=== PATIENT | male | born 1945 | race Caucasian/White ===

== ENCOUNTER 2017-01-09 09:23 | Inpatient (IN) | payer OTHER, MEDICARE ==
[2017-01-09] MEDS ORDERED: ASPIRIN 81 MG CHEW PO STA (09:41)
[2017-01-09 09:58] LABS: Basophils % (A) 1 %; CH 33.5; CHCM 36.5; Eosinophils # (A) 0.1 k/uL (0-0.7); Eosinophils % (A) 2 %; HCT 42.2 % (39.0-53.0); HDW 3.09; HGB 14.6 gm/dL (13.0-17.5); Luc # (Auto) 0.07; Luc % (Auto) 1; Lymphocytes # (A) 1.1 k/uL (1.0-4.8); Lymphocytes % (A) 20 %; MCH 31.9 pg (25.0-35.0); MCHC 34.6 g/dL (31.0-37.0); MCV 92.2 fL (80.0-100.0); Mean Platelet Volume 8.2; Monocytes # (A) 0.3 k/uL (0-1.0); Monocytes % (A) 6 %; Neutrophils # (A) 3.9 k/uL (1.3-7.7); Neutrophils % (A) 70 %; RBC 4.57 m/uL (4.30-5.90); RDW 15.5 % (11.5-15.5); WBC 5.5 k/uL (3.8-10.6); WBC (Perox) 5.26
--- NOTE | 2017-01-09 10:02 | ED ---
General Adult HPI - General Chief complaint: Chest Pain Stated complaint: chest pressure Time Seen by Provider: 01/09/17 09:28 Source: patient, family, RN notes reviewed Mode of arrival: wheelchair Limitations: no limitations - History of Present Illness Initial comments: 71-year-old male with history of hypertension, hypercholesterolemia and prostate cancer presenting with substernal chest pressure. Patient's pain was mild but felt needed evaluation. Patient developed these symptoms this morning. Symptoms were present at rest. There was some associated shortness of breath. Chest pressure was nonradiating. Not associated with nausea or vomiting. No diaphoresis. Patient's last stress test was over 30 years ago. He is very healthy and active 71-year-old. Patient denies chest pressure at this time. Denies abdominal pain. Denies nausea vomiting or diarrhea. Denies fever or chills. Denies cough. - Related Data Home Medications Medication Instructions Recorded Confirmed Aspirin EC [Ecotrin Low Dose] 81 mg PO DAILY 01/09/17 01/09/17 Cholecalciferol [Vitamin D3] 6,000 unit PO DAILY 01/09/17 01/09/17 Curcumin 2 cap PO DAILY 01/09/17 01/09/17 Fish Oil/Dha/Epa [Fish Oil 1,200 1 cap PO DAILY 01/09/17 01/09/17 mg Fish Oil] Garlic 1 tab PO DAILY 01/09/17 01/09/17 Levothyroxine Sodium [Synthroid] 50 mcg PO DAILY 01/09/17 01/09/17 Lisinopril 40 mg PO DAILY 01/09/17 01/09/17 Multivit-Min/FA/Lycopen/Lutein 1 tab PO DAILY 01/09/17 01/09/17 [Centrum Silver Men Tablet] Terazosin HCl 2 mg PO HS 01/09/17 01/09/17 amLODIPine [Norvasc] 10 mg PO DAILY 01/09/17 01/09/17 Allergies Allergy/AdvReac Type Severity Reaction Status Date / Time No Known Allergies Allergy Verified 01/09/17 10:22 Review of Systems ROS Statement: Those systems with pertinent positive or pertinent negative responses have been documented in the HPI. ROS Other: All systems not noted in ROS Statement are negative. Cardiovascular: Reports: chest pain. Denies: palpitations Gastrointestinal: Denies: abdominal pain, nausea, vomiting Past Medical History Past Medical History: Cancer, Hyperlipidemia, Hypertension, Prostate Disorder Additional Past Medical History / Comment(s): prostate cancer History of Any Multi-Drug Resistant Organisms: None Reported Past Surgical History: Appendectomy Past Psychological History: No Psychological Hx Reported Smoking Status: Former smoker Past Alcohol Use History: None Reported Past Drug Use History: None Reported General Exam Limitations: no limitations General appearance: alert, in no apparent distress Head exam: Present: atraumatic, normocephalic Eye exam: Present: normal appearance, PERRL, EOMI ENT exam: Present: normal exam, mucous membranes moist Neck exam: Present: normal inspection. Absent: tenderness, meningismus Respiratory exam: Present: normal lung sounds bilaterally. Absent: respiratory distress, wheezes, rales Cardiovascular Exam: Present: regular rate, normal rhythm, normal heart sounds GI/Abdominal exam: Present: soft. Absent: distended, tenderness, guarding Extremities exam: Present: normal inspection, normal capillary refill, other (2 + bilateral DP pulses). Absent: pedal edema Neurological exam: Present: alert, oriented X3, CN II-XII intact. Absent: motor sensory deficit Psychiatric exam: Present: normal affect, normal mood Skin exam: Present: warm, dry. Absent: cyanosis, diaphoretic Course Vital Signs 01/09/17 01/09/17 09:26 10:28 Temperature 98.6 F Pulse Rate 70 64 Respiratory 20 20 Rate Blood Pressure 152/82 143/73 O2 Sat by Pulse 98 95 Oximetry - Reevaluation(s) Reevaluation #1: 01/09/17 10:36 Reevaluation patient remains chest pain-free. EKG Findings - EKG Comments: EKG Findings:: No ST segment elevation or depression, there does appear to be an inverted T-wave in lead 3, no associated T-wave inversion in the other inferior leads, Q-wave present in lead 3. Normal sinus rhythm, ventricular is 68, LA interval 180, QRS duration 102, QTC 425. Medical Decision Making - Medical Decision Making 71-year-old male with history of hypercholesterolemia hypertension and positive family history of coronary artery disease presents with chest pressure. This was resolved prior to arrival. Chest x-ray shows no acute process. EKG is nonischemic. Laboratory studies including cardiac enzymes are unremarkable. Patient remains chest pain-free in the emergency prompt. He is given an aspirin. He will be placed in observation for cardiology evaluation, and serial cardiac enzymes. Diagnosis: Chest pain rule out ACS - Lab Data Result diagrams: 01/09/17 09:34 01/09/17 09:34 Lab Results 01/09/17 01/09/17 01/09/17 Range/Units 09:34 09:34 09:34 WBC 5.5 (3.8-10.6) k/uL RBC 4.57 (4.30-5.90) m/uL Hgb 14.6 (13.0-17.5) gm/dL Hct 42.2 (39.0-53.0) % MCV 92.2 (80.0-100.0) fL MCH 31.9 (25.0-35.0) pg MCHC 34.6 (31.0-37.0) g/dL RDW 15.5 (11.5-15.5) % Plt Count 165 (150-450) k/uL Neutrophils % 70 % Lymphocytes % 20 % Monocytes % 6 % Eosinophils % 2 % Basophils % 1 % Neutrophils # 3.9 (1.3-7.7) k/uL Lymphocytes # 1.1 (1.0-4.8) k/uL Monocytes # 0.3 (0-1.0) k/uL Eosinophils # 0.1 (0-0.7) k/uL Basophils # 0.0 (0-0.2) k/uL PT (9.0-12.0) sec INR (<1.2) APTT (22.0-30.0) sec D-Dimer (<0.60) mg/L FEU Sodium 140 (137-145) mmol/L Potassium 4.4 (3.5-5.1) mmol/L Chloride 106 (98-107) mmol/L Carbon Dioxide 23 (22-30) mmol/L Anion Gap 11 mmol/L BUN 17 (9-20) mg/dL Creatinine 0.88 (0.66-1.25) mg/dL Est GFR (MDRD) Af Amer >60 (>60 ml/min/1.73 sqM) Est GFR (MDRD) Non-Af >60 (>60 ml/min/1.73 sqM) Glucose 121 H (74-99) mg/dL Calcium 9.5 (8.4-10.2) mg/dL Magnesium 1.9 (1.6-2.3) mg/dL Total Bilirubin 0.6 (0.2-1.3) mg/dL AST 28 (17-59) U/L ALT 56 (21-72) U/L Alkaline Phosphatase 110 (38-126) U/L Total Creatine Kinase 150 (55-170) U/L CK-MB (CK-2) 3.5 H* (0.0-2.4) ng/mL CK-MB (CK-2) Rel Index 2.3 Troponin I <0.012 (0.000-0.034) ng/mL Total Protein 6.7 (6.3-8.2) g/dL Albumin 4.4 (3.5-5.0) g/dL 01/09/17 Range/Units 09:34 WBC (3.8-10.6) k/uL RBC (4.30-5.90) m/uL Hgb (13.0-17.5) gm/dL Hct (39.0-53.0) % MCV (80.0-100.0) fL MCH (25.0-35.0) pg MCHC (31.0-37.0) g/dL RDW (11.5-15.5) % Plt Count (150-450) k/uL Neutrophils % % Lymphocytes % % Monocytes % % Eosinophils % % Basophils % % Neutrophils # (1.3-7.7) k/uL Lymphocytes # (1.0-4.8) k/uL Monocytes # (0-1.0) k/uL Eosinophils # (0-0.7) k/uL Basophils # (0-0.2) k/uL PT 9.6 (9.0-12.0) sec INR 0.9 (<1.2) APTT 23.7 (22.0-30.0) sec D-Dimer 0.33 (<0.60) mg/L FEU Sodium (137-145) mmol/L Potassium (3.5-5.1) mmol/L Chloride (98-107) mmol/L Carbon Dioxide (22-30) mmol/L Anion Gap mmol/L BUN (9-20) mg/dL Creatinine (0.66-1.25) mg/dL Est GFR (MDRD) Af Amer (>60 ml/min/1.73 sqM) Est GFR (MDRD) Non-Af (>60 ml/min/1.73 sqM) Glucose (74-99) mg/dL Calcium (8.4-10.2) mg/dL Magnesium (1.6-2.3) mg/dL Total Bilirubin (0.2-1.3) mg/dL AST (17-59) U/L ALT (21-72) U/L Alkaline Phosphatase (38-126) U/L Total Creatine Kinase (55-170) U/L CK-MB (CK-2) (0.0-2.4) ng/mL CK-MB (CK-2) Rel Index Troponin I (0.000-0.034) ng/mL Total Protein (6.3-8.2) g/dL Albumin (3.5-5.0) g/dL Disposition Clinical Impression: Chest pain Disposition: ADMITTED IP TO THIS [facility] Condition: Stable Referrals: None,Stated [Primary Care Provider] - 1-2 days Decision to Admit Reason: Admit from EC Decision Date: 01/09/17 Decision Time: 10:38
[2017-01-09 10:06] LABS: ALT 56 U/L (21-72); AST 28 U/L (17-59); Alkaline Phosphatase 110 U/L (38-126); Anion Gap 11 mmol/L; Blood Urea Nitrogen 17 mg/dL (9-20); Calcium 9.5 mg/dL (8.4-10.2); Carbon Dioxide 23 mmol/L (22-30); Chloride 106 mmol/L (98-107); Glucose 121 mg/dL (74-99); Magnesium 1.9 mg/dL (1.6-2.3); Non-African American GFR(MDRD) >60 (>60 ml/min/1.73 sqM); Potassium 4.4 mmol/L (3.5-5.1); Sodium 140 mmol/L (137-145); Total Bilirubin 0.6 mg/dL (0.2-1.3); Total Protein 6.7 g/dL (6.3-8.2)
[2017-01-09 10:16] LABS: Creatine Kinase 150 U/L (55-170)
--- NOTE | 2017-01-09 10:16 | XR ---
EXAMINATION TYPE: XR chest 2V DATE OF EXAM: 01/09/2017 COMPARISON: None HISTORY: 71-year-old male with chest pain TECHNIQUE: Frontal and lateral views FINDINGS: The heart is normal size. Mild atherosclerotic arch calcification. Pulmonary vasculature within fadumo l limits. There is strandy atelectasis at the left base. No consolidation or effusion. IMPRESSION: No acute cardiopulmonary process.
[2017-01-09 10:21] LABS: INR 0.9 (<1.2); Partial Thromboplastin Time 23.7 sec (22.0-30.0); Prothrombin Time 9.6 sec (9.0-12.0)
[2017-01-09 10:28] LABS: Creatine Kinase MB 3.5 ng/mL (0.0-2.4); Troponin I <0.012 ng/mL (0.000-0.034)
[2017-01-09] MEDS ORDERED: ONDANSETRON 4 MG/2 ML VIAL IVP PRN (10:39)
[2017-01-09] MEDS ORDERED: NALOXONE 0.4 MG/ML 1 ML VIAL IV PRN (10:39)
[2017-01-09] MEDS ORDERED: MORPHINE SULFATE 4 MG/ML SYRINGE IV PRN (10:39)
[2017-01-09] MEDS: DEXTROSE 5%-0.45% NACL 1,000 ML IV SCH (11:51)
--- NOTE | 2017-01-09 13:00 | P.HPIM ---
History of Present Illness Patient is a very pleasant 71-year-old gentleman came in with complaints of chest pressure-like sensation was started when he woke up about 1 x 10 in severity nonradiating in the substernal area, associated with shortness of breath, questionable lightheadedness denied any diaphoresis, his chest pain is nonpleuritic in nature lasted for about 2 hours, not associated with food presently on and off. Patient's chest pain resolved before he came to ER. Patient does have history of hypertension and hyperlipidemia not a smoker. Considering his age patient is concerned and came to ER for probable probable cardiac causes of chest pain. Patient's chest pain is nonreproducible. Patient 's EKG showed sinus rhythm without any acute ST-T wave changes. Chest x-ray within normal limits patient denied any cough fever. First set of troponin is negative. Review of Systems REVIEW OF SYSTEMS: CONSTITUTIONAL: No fever, no malaise, no fatigue. HEENT: No recent visual problems or hearing problems. Denied any sore throat. CARDIOVASCULAR: no orthopnea, PND, no palpitations, no syncope. PULMONARY: , no cough, no hemoptysis. GASTROINTESTINAL: No diarrhea, no nausea, no vomiting, no abdominal pain. Normoactive bowel sounds. NEUROLOGICAL: No headaches, no weakness, no numbness. HEMATOLOGICAL: Denies any bleeding or petechiae. GENITOURINARY: Denies any burning micturition, frequency, or urgency. MUSCULOSKELETAL/RHEUMATOLOGICAL: Denies any joint pain, swelling, or any muscle pain. ENDOCRINE: Denies any polyuria or polydipsia. The rest of the 14-point review of systems is negative. Past Medical History Past Medical History: Cancer, Hyperlipidemia, Hypertension, Prostate Disorder, Thyroid Disorder Additional Past Medical History / Comment(s): PROSTATE CANCER TX WITH RADIATION AND HORMONE THERAPY, HYPOTHYROID. History of Any Multi-Drug Resistant Organisms: None Reported Past Surgical History: Appendectomy Additional Past Surgical History / Comment(s): COLONOSCOPIES, BILATERAL CATARACT REMOVAL WITH LENS IMPLANTS. Past Anesthesia/Blood Transfusion Reactions: No Reported Reaction Smoking Status: Former smoker - Past Family History Father Family Medical History: Myocardial Infarction ([place]) Additional Family Medical History / Comment(s): FATHER OF A LA AT THE AGE OF 82 YRS. Mother Additional Family Medical History / Comment(s): MOTHER AFTER A FALL WHICH CAUSED A BRAIN BLEED. Medications and Allergies Home Medications Medication Instructions Recorded Confirmed Type Aspirin EC [Ecotrin Low Dose] 81 mg PO DAILY 01/09/17 01/09/17 History Cholecalciferol [Vitamin D3] 6,000 unit PO DAILY 01/09/17 01/09/17 History Curcumin 2 cap PO DAILY 01/09/17 01/09/17 History Fish Oil/Dha/Epa [Fish Oil 1,200 1 cap PO DAILY 01/09/17 01/09/17 History mg Fish Oil] Garlic 1 tab PO DAILY 01/09/17 01/09/17 History Levothyroxine Sodium [Synthroid] 50 mcg PO DAILY 01/09/17 01/09/17 History Lisinopril 40 mg PO DAILY 01/09/17 01/09/17 History Multivit-Min/FA/Lycopen/Lutein 1 tab PO DAILY 01/09/17 01/09/17 History [Centrum Silver Men Tablet] Terazosin HCl 2 mg PO HS 01/09/17 01/09/17 History amLODIPine [Norvasc] 10 mg PO DAILY 01/09/17 01/09/17 History Allergies Allergy/AdvReac Type Severity Reaction Status Date / Time No Known Allergies Allergy Verified 01/09/17 10:22 Physical Exam Vitals: Vital Signs Temp Pulse Resp BP Pulse Ox 01/09/17 11:00 63 18 144/73 95 01/09/17 10:28 64 20 143/73 95 01/09/17 09:26 98.6 F 70 20 152/82 98 Intake and Output 01/08/17 01/09/17 01/09/17 22:59 06:59 14:59 Other: Weight 111.13 kg Patient Weight 01/10/17 06:59 Weight 111.13 kg PHYSICAL EXAMINATION: GENERAL: The patient is alert and oriented x3, not in any acute distress. Well developed, well nourished. HEENT: Pupils are round and equally reacting to light. EOMI. No scleral icterus. No conjunctival pallor. Normocephalic, atraumatic. No pharyngeal erythema. No thyromegaly. CARDIOVASCULAR: S1 and S2 present. No murmurs, rubs, or gallops. PULMONARY: Chest is clear to auscultation, no wheezing or crackles. ABDOMEN: Soft, nontender, distended and tympanic, normoactive bowel sounds. No palpable organomegaly. MUSCULOSKELETAL: No joint swelling or deformity. EXTREMITIES: No cyanosis, clubbing, or pedal edema. NEUROLOGICAL: Gross neurological examination did not reveal any focal deficits. SKIN: No rashes. Results CBC & Chem 7: 01/09/17 09:34 01/09/17 09:34 Labs: Abnormal Lab Results - Last 24 Hours (Table) 01/09/17 01/09/17 Range/Units 09:34 09:34 Glucose 121 H (74-99) mg/dL CK-MB (CK-2) 3.5 H* (0.0-2.4) ng/mL Thrombosis Risk Factor Assmnt - Choose All That Apply Any of the Below Risk Factors Present?: Yes Each Factor Represents 1 point: Obesity (BMI >25) Other Risk Factors: Yes Each Risk Factor Represents 2 Points: Age 61-74 years, Malignancy Other congenital or acquired thrombophilia - If yes, enter type in comment: No Thrombosis Risk Factor Assessment Total Risk Factor Score: 5 Thrombosis Risk Factor Assessment Level: High Risk Assessment and Plan Plan: #1 chest pain: Patient will be admitted to rule out acute coronary syndromes, patient will probably need a stress test. We'll rule out unstable angina. 2 more sets of troponin and EKG. Cardiology was consulted. #2 hypertension: Well-controlled blood pressures and continue with lisinopril and amlodipine. #3 hypothyroidism continue with levothyroxine #4 benign prostatic hypertrophy and prostate cancer in the past status post radiation therapy recently late last year #5 hyperlipidemia
[2017-01-09 15:41] LABS: Creatine Kinase 128 U/L (55-170)
[2017-01-09 15:53] LABS: Troponin I <0.012 ng/mL (0.000-0.034)
[2017-01-09] MEDS: TERAZOSIN 2 MG CAP PO SCH (20:10)
[2017-01-09 22:34] LABS: Creatine Kinase 121 U/L (55-170)
[2017-01-09 22:47] LABS: Troponin I <0.012 ng/mL (0.000-0.034)
[2017-01-09 22:59] LABS: Creatine Kinase MB 2.8 ng/mL (0.0-2.4)
[2017-01-10] MEDS: DEXTROSE 5%-0.45% NACL 1,000 ML IV SCH (00:25)
[2017-01-10] MEDS ORDERED: CALCIUM CARBONATE 500 MG CHEWABLE PO PRN (00:31)
[2017-01-10] MEDS: LEVOTHYROXINE 50 MCG TAB PO SCH (06:10)
--- NOTE | 2017-01-10 11:51 | NM ---
EXAMINATION TYPE: NM stress cardiolite complete DATE OF EXAM: 01/10/2017 COMPARISON: NONE HISTORY: Shortness of breath, pain TECHNIQUE: After the intravenous administration of 10.4 mCi Tc 99m Sestamibi - Rest images obtained 50 minutes post injection. The patient exercised using a STEPHY protocol and 1 minute prior to peak exercise was injected with 27.5 mCi Tc 99m Sestamibi - Stress images obtained 5 minutes post injectio n. FINDINGS: Targeted heart rate was achieved during performance of the study. Review of stress and rest SPECT varsha ges demonstrates some decreased radio pharmaceutical uptake along lateral wall on stress as compared to rest images. Gated analysis shows normal wall motion with an estimated left ventricular ejection fraction of 49 %. 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
--- NOTE | 2017-01-10 11:52 | EST ---
DATE OF SERVICE: 01/10/2017 TYPE OF REPORT: CARDIOLITE STRESS TEST INDICATION: Shortness of breath. BASELINE HEART RATE: 75 BASELINE BLOOD PRESSURE: 168/64 MAXIMUM HEART RATE: 129 MAXIMUM BLOOD PRESSURE: 211/82 85% MPHR: 124 100% MPHR: 147 METS: MAXIMUM STAGE REACHED: 2 TOTAL EXERCISE TIME: 6:00 Baseline EKG revealed a sinus mechanism with a minor nonspecific ST abnormality. Patient walked on standard [place] protocol for a total duration of 6 minutes, achieved a maximum heart rate of 129 beats per minute which is more than 85% of predicted maximum. He did not have any angina or any significant arrhythmia. Upsloping ST segment changes are noted which are considered inconclusive mainly because his resting EKG had some ST segment changes to begin with. These changes were not associated with any angina. ASSESSMENT: 1. By EKG criteria, this is an inconclusive stress test because of minor resting EKG changes with limited exercise capacity. 2. The nuclear scan results which are more pertinent will be reported by the radiologist. TOLU
[2017-01-10] MEDS ORDERED: HEPARIN SODIUM,PORCINE 5,000 UNIT/ML 1 ML VIAL IV PRN (13:07)
[2017-01-10] MEDS ORDERED: ASPIRIN 325 MG TAB PO STA (13:10)
[2017-01-10] MEDS ORDERED: NITROGLYCERIN SL TABS 0.4 MG TAB SUBLINGUAL PRN (13:10)
[2017-01-10] MEDS ORDERED: ALPRAZolam 0.25 MG TAB PO PRN (13:10)
[2017-01-10] MEDS ORDERED: ATORVASTATIN 80 MG TAB PO STA (13:10)
[2017-01-10] MEDS ORDERED: SODIUM CHLORIDE 0.9% 1,000 ML in EMPTY BAG 1 BAG IV ONE (13:10)
[2017-01-10] MEDS ORDERED: ALPRAZolam 0.5 MG TAB PO PRN (13:10)
[2017-01-10] MEDS ORDERED: HEPARIN SODIUM,PORCINE/D5W PMX 25,000 UNIT in DEXTROSE/WATER 1 500ML.BAG IV SCH (13:15)
--- NOTE | 2017-01-10 13:23 | P.CRDCN ---
History of Present Illness Consult date: 01/10/17 Consult reason: chest pain History of present illness: This is a 71-year-old male with a history of hyperlipidemia and hypertension. He presented to the emergency room with complaints of left-sided chest heaviness. He states he woke up yesterday morning feeling increasingly fatigued, weak and achy all over. He thought he was possibly coming down with some sort of a viral illness. He then began to have what he described as chest heaviness and palpitations. He denies dizziness, nausea, diaphoresis or radiation of the pain. He states he has never seen a portable machine sander for any reason. He has no history of coronary artery disease or NM. He is a former smoker. His last stress test was over 40 years ago. His EKG indicates a normal sinus mechanism. Chest x-ray is negative for any acute cardiopulmonary process. Troponins are negative 3. There are no old records available to review in the system. Patient states the pain and palpitations have subsided on their own. Cardiac tracings indicate multifocal PVC's with underlying NSR. Review of Systems REVIEW OF SYSTEMS: Patient denies any chest discomfort. No shortness of breath. No diaphoresis. He denies headache, dizziness, blurred vision, double vision. No dyspnea on exertion. Patient denies any stomach discomfort. No nausea, vomiting. No hematochezia. No hematemesis. Denies any black stools or blood in his stools. No syncope. No palpitations. No cough. No recent fever or chills. Denies dysuria or hematuria. No muscle weakness or numbness. Past Medical History Past Medical History: Cancer, Hyperlipidemia, Hypertension, Prostate Disorder, Thyroid Disorder Additional Past Medical History / Comment(s): PROSTATE CANCER TX WITH RADIATION AND HORMONE THERAPY, HYPOTHYROID. History of Any Multi-Drug Resistant Organisms: None Reported Past Surgical History: Appendectomy Additional Past Surgical History / Comment(s): COLONOSCOPIES, BILATERAL CATARACT REMOVAL WITH LENS IMPLANTS. Past Anesthesia/Blood Transfusion Reactions: No Reported Reaction Smoking Status: Former smoker - Past Family History Father Family Medical History: Myocardial Infarction ([place]) Additional Family Medical History / Comment(s): FATHER OF A [place] AT THE AGE OF 82 YRS. Mother Additional Family Medical History / Comment(s): MOTHER AFTER A FALL WHICH CAUSED A BRAIN BLEED. Medications and Allergies Home Medications Medication Instructions Recorded Confirmed Type Aspirin EC [Ecotrin Low Dose] 81 mg PO DAILY 01/09/17 01/09/17 History Cholecalciferol [Vitamin D3] 6,000 unit PO DAILY 01/09/17 01/09/17 History Curcumin 2 cap PO DAILY 01/09/17 01/09/17 History Fish Oil/Dha/Epa [Fish Oil 1,200 1 cap PO DAILY 01/09/17 01/09/17 History mg Fish Oil] Garlic 1 tab PO DAILY 01/09/17 01/09/17 History Levothyroxine Sodium [Synthroid] 50 mcg PO DAILY 01/09/17 01/09/17 History Lisinopril 40 mg PO DAILY 01/09/17 01/09/17 History Multivit-Min/FA/Lycopen/Lutein 1 tab PO DAILY 01/09/17 01/09/17 History [Centrum Silver Men Tablet] Terazosin HCl 2 mg PO HS 01/09/17 01/09/17 History amLODIPine [Norvasc] 10 mg PO DAILY 01/09/17 01/09/17 History Allergies Allergy/AdvReac Type Severity Reaction Status Date / Time No Known Allergies Allergy Verified 01/09/17 10:22 Physical Exam Vitals: Vital Signs Temp Pulse Pulse Resp BP BP Pulse Ox 01/10/17 04:00 98.2 F 62 18 140/72 93 L 01/09/17 23:38 72 18 130/71 98 01/09/17 19:45 18 01/09/17 19:40 98.2 F 75 18 137/77 98 01/09/17 16:03 98.0 F 71 16 148/78 94 L 01/09/17 15:59 97.8 F 72 18 134/63 96 01/09/17 11:00 63 18 144/73 95 01/09/17 10:28 64 20 143/73 95 01/09/17 09:26 98.6 F 70 20 152/82 98 Intake and Output 01/09/17 01/10/17 01/10/17 22:59 06:59 14:59 Intake Total 300 Balance 300 Intake: Intake, IV Titration 300 Amount Dextrose 5%-0.45% NaCl 1, 300 000 ml @ 75 mls/hr IV . [id number] [facility] Rx#:[id number] Other: Weight 116.9 kg GENERAL: This is a 71-year-old male in no apparent distress at the time of my examination. HEENT: Head is atraumatic, normocephalic. Pupils are equal, round. Sclerae anicteric. Conjunctivae are clear. Mucous membranes of the mouth are moist. Neck is supple. There is no jugular venous distention. No carotid bruit is heard. LUNGS: Clear to auscultation and precussion. No chest wall tenderness is noted on palpation or with deep breathing. HEART: Regular rate and rhythm short systolic murmur, no rubs or gallops. S1 and S2 heard. ABDOMEN: Soft, nontender. Bowel sounds are heard. No organomegaly noted. EXTREMITIES: 2+ peripheral pulses with no evidence of peripheral edema and no calf tenderness noted. NEUROLOGIC: Patient is awake, alert and oriented x3. Results 01/11/17 07:07 01/09/17 09:34 Cardiac Enzymes 01/09/17 01/09/17 01/09/17 Range/Units 09:34 09:34 15:01 AST 28 (17-59) U/L CK-MB (CK-2) 3.5 H* 3.0 H* (0.0-2.4) ng/mL Troponin I <0.012 <0.012 (0.000-0.034) ng/mL 01/09/17 Range/Units 21:42 AST (17-59) U/L CK-MB (CK-2) 2.8 H* (0.0-2.4) ng/mL Troponin I <0.012 (0.000-0.034) ng/mL Coagulation 01/09/17 Range/Units 09:34 PT 9.6 (9.0-12.0) sec APTT 23.7 (22.0-30.0) sec CBC 01/09/17 Range/Units 09:34 WBC 5.5 (3.8-10.6) k/uL RBC 4.57 (4.30-5.90) m/uL Hgb 14.6 (13.0-17.5) gm/dL Hct 42.2 (39.0-53.0) % Plt Count 165 (150-450) k/uL Comprehensive Metabolic Panel 01/09/17 Range/Units 09:34 Sodium 140 (137-145) mmol/L Potassium 4.4 (3.5-5.1) mmol/L Chloride 106 (98-107) mmol/L Carbon Dioxide 23 (22-30) mmol/L BUN 17 (9-20) mg/dL Creatinine 0.88 (0.66-1.25) mg/dL Glucose 121 H (74-99) mg/dL Calcium 9.5 (8.4-10.2) mg/dL AST 28 (17-59) U/L ALT 56 (21-72) U/L Alkaline Phosphatase 110 (38-126) U/L Total Protein 6.7 (6.3-8.2) g/dL Albumin 4.4 (3.5-5.0) g/dL Current Medications Generic Name Dose Route Start Last Admin Trade Name Freq PRN Reason Stop Dose Admin Amlodipine Besylate 10 mg 01/10/17 09:00 Norvasc PO DAILY EH Aspirin 81 mg 01/10/17 09:00 Aspirin PO DAILY EH Calcium Carbonate/Glycine 1,000 mg 01/10/17 00:31 01/10/17 01:05 Tums PO 1,000 mg TID PRN Administration Heartburn Dextrose/Sodium Chloride 1,000 mls @ 75 mls/hr 01/09/17 10:45 01/10/17 00:25 Dextrose 5%-1/2ns Iv Soln IV 75 mls/hr .[id number] E[facility] Administration Levothyroxine Sodium 50 mcg 01/10/17 06:30 01/10/17 06:10 Synthroid PO 50 mcg DAILY@0630 EH Administration Lisinopril 40 mg 01/10/17 09:00 Zestril PO DAILY EH Morphine Sulfate 4 mg 01/09/17 10:39 Morphine Sulfate (Inj) IV Q4HR PRN Severe Pain Naloxone HCl 0.2 mg 01/09/17 10:39 Narcan IV Q2M PRN Opioid Reversal Ondansetron HCl 4 mg 01/09/17 10:39 Zofran IVP Q8HR PRN Nausea And Vomiting Terazosin HCl 2 mg 01/09/17 21:00 01/09/17 20:10 Hytrin PO 2 mg HS EH Administration Intake and Output 01/09/17 01/10/17 01/10/17 22:59 06:59 14:59 Intake Total 300 Balance 300 Intake: Intake, IV Titration 300 Amount Dextrose 5%-0.45% NaCl 1, 300 000 ml @ 75 mls/hr IV . [id number] [facility] Rx#:[id number] Other: Weight 116.9 kg 01/09/17 09:34 01/09/17 09:34 - EKG Interpretation EKG: sinus rhythm, normal QRS, normal ST/T Assessment and Plan Plan: ASSESSMENT 1. Chest pain 2. Essential hypertension 3. Hyperlipidemia 4. History of prostate cancer with recent radiation therapy PLAN Echocardiogram along with a Cardiolite exercise stress test to assess for ischemia. Check TSH. Add lipitor 40 mg by mouth daily. Add lopressor 12.5 mg by mouth twice a day. If cardiac testing is unremarkable, from a cardiac standpoint, the pt is suitable for discharge home to follow-up with his dr through the [place]. Nurse Practitioner note has been reviewed, I agree with a documented findings and plan of care. Patient was seen and examined.
--- NOTE | 2017-01-10 13:26 | P.PN ---
Progress Note - Text Cardiolite stress test was completely indicates findings compatible with stress- induced left ventricular myocardial ischemia, decreased pharmaceutical uptake along the lateral wall compared to rest images. The findings of this exam has been discussed with the patient and his extensively. Recommendations have been made to move forward with a cardiac catheterization. I have discussed the risks, benefits and alternative therapies for the above-mentioned procedure and for both sedation/analgesia as well as necessary blood product administration, if indicated, as they pertain to this patient. The patient has indicated understanding and acceptance of the risks and procedures discussed. All questions answered appropriately. The patient will be started on a heparin drip and prepped for procedure tomorrow morning at 9 AM. Nurse Practitioner note has been reviewed, I agree with a documented findings and plan of care. Patient was seen and examined.
[2017-01-10] MEDS: amLODIPine 10 MG TAB PO SCH (14:01)
[2017-01-10] MEDS: ASPIRIN 81 MG CHEW PO SCH ×2 (14:01→23:06)
[2017-01-10] MEDS: LISINOPRIL 20 MG TAB PO SCH (14:02)
[2017-01-10 14:23] LABS: Partial Thromboplastin Time 23.5 sec (22.0-30.0); Prothrombin Time 10.2 sec (9.0-12.0)
[2017-01-10] MEDS: SODIUM CHLORIDE 0.9% 1,000 ML IV SCH (16:15)
--- NOTE | 2017-01-10 17:51 | P.PN ---
Subjective 71-year-old man came in with chest pain for has a stress test which is positive for inducible ischemia. will undergo cardiac catheterization tomorrow. Patient denied any chest pain, nausea, vomiting, new weakness. Denied any abdominal pain dysuria urinary frequency. Objective - Vital Signs Vital signs: Vital Signs Temp 97.5 F L 01/10/17 15:41 Pulse 78 01/10/17 15:41 Resp 18 01/10/17 15:41 BP 142/83 01/10/17 15:41 Pulse Ox 97 01/10/17 17:07 Intake & Output 01/09/17 01/10/17 01/10/17 18:59 06:59 18:59 Intake Total 300 240 Balance 300 240 Weight 116.9 kg Intake: Intake, IV Titration 300 Amount Dextrose 5%-0.45% NaCl 1, 300 000 ml @ 75 mls/hr IV . [id number] [facility] Rx#:[id number] Oral 240 Other: Voiding Method Toilet - Exam PHYSICAL EXAMINATION: GENERAL: The patient is alert and oriented x3, not in any acute distress. Well developed, well nourished. HEENT: Pupils are round and equally reacting to light. EOMI. No scleral icterus. No conjunctival pallor. Normocephalic, atraumatic. No pharyngeal erythema. No thyromegaly. CARDIOVASCULAR: S1 and S2 present. No murmurs, rubs, or gallops. PULMONARY: Chest is clear to auscultation, no wheezing or crackles. ABDOMEN: Soft, nontender, nondistended, normoactive bowel sounds. No palpable organomegaly. MUSCULOSKELETAL: No joint swelling or deformity. EXTREMITIES: No cyanosis, clubbing, or pedal edema. NEUROLOGICAL: Gross neurological examination did not reveal any focal deficits. SKIN: No rashes. - Labs CBC & Chem 7: 01/09/17 09:34 01/09/17 09:34 Labs: Abnormal Lab Results - Last 24 Hours (Table) 01/09/17 Range/Units 21:42 CK-MB (CK-2) 2.8 H* (0.0-2.4) ng/mL Assessment and Plan Plan: #1 chest pain: Patient will be admitted to rule out acute coronary syndromes, patient's stress test was positive and patient will undergo cardiac catheterization tomorrow #2 hypertension: Well-controlled blood pressures and continue with lisinopril and amlodipine. #3 hypothyroidism continue with levothyroxine #4 benign prostatic hypertrophy and prostate cancer in the past status post radiation therapy recently late last year #5 hyperlipidemia
[2017-01-10] MEDS: METOPROLOL TARTRATE 12.5 MG TAB PO SCH (20:35)
[2017-01-10] MEDS: TERAZOSIN 2 MG CAP PO SCH (20:35)
[2017-01-11] MEDS: METOPROLOL TARTRATE 12.5 MG TAB PO SCH (06:19)
[2017-01-11] MEDS: LEVOTHYROXINE 50 MCG TAB PO SCH (06:19)
[2017-01-11] MEDS: amLODIPine 10 MG TAB PO SCH (06:19)
[2017-01-11] MEDS: LISINOPRIL 20 MG TAB PO SCH (06:19)
[2017-01-11] MEDS: SODIUM CHLORIDE 0.9% 1,000 ML IV SCH (06:20)
[2017-01-11 07:31] LABS: Basophils % (A) 0 %; CH 32.4; Eosinophils # (A) 0.2 k/uL (0-0.7); Eosinophils % (A) 2 %; HCT 43.1 % (39.0-53.0); HDW 3.19; HGB 15.3 gm/dL (13.0-17.5); Luc % (Auto) 2; Lymphocytes # (A) 1.5 k/uL (1.0-4.8); Lymphocytes % (A) 24 %; MCH 32.2 pg (25.0-35.0); MCHC 35.5 g/dL (31.0-37.0); MCV 90.5 fL (80.0-100.0); Mean Platelet Volume 7.2; Monocytes # (A) 0.4 k/uL (0-1.0); Monocytes % (A) 6 %; Neutrophils # (A) 4.2 k/uL (1.3-7.7); Neutrophils % (A) 66 %; RBC 4.76 m/uL (4.30-5.90); RDW 14.3 % (11.5-15.5); WBC 6.4 k/uL (3.8-10.6); WBC (Perox) 6.71
[2017-01-11] MEDS ORDERED: ATORVASTATIN 20 MG TAB PO SCH (09:00)
[2017-01-11] MEDS ORDERED: IV FLUID CONTINUATION 200 ML IV ONE (09:30)
[2017-01-11] MEDS ORDERED: diphenhydrAMINE 50 MG/ML 1 ML VIAL IVP ONE (09:38)
[2017-01-11] MEDS ORDERED: MIDAZOLAM 2 MG/2 ML VIAL IVP ONE (09:38)
[2017-01-11] MEDS ORDERED: LIDOCAINE 2% INJ 20 MG/ML SQ ONE (09:40)
[2017-01-11] MEDS: VERAPAMIL SYRINGE (5 MG/10 ML) INTRAARTER ONE ×2 (09:42→10:03)
[2017-01-11] MEDS ORDERED: HEPARIN SODIUM 1,000 UN/ML (10ML VL) IV ONE (09:43)
[2017-01-11] MEDS ORDERED: IOHEXOL 350 MG/ML 125ML BOTTLE INJ ONE (10:03)
[2017-01-11] MEDS ORDERED: SODIUM CHLORIDE 0.9% 1,000 ML IV SCH (10:30)
--- NOTE | 2017-01-11 11:25 | ECHOF ---
Referral Reason:chest pain MEASUREMENTS -------- HEIGHT: 190.5 cm WEIGHT: 116.6 kg BP: 146/80 RVIDd: 2.8 cm (< 3.3) IVSd: 0.9 cm (0.6 - 1.1) LVIDd: 5.9 cm (3.9 - 5.3) LVPWd: 0.9 cm (0.6 - 1.1) IVSs: 1.3 cm LVIDs: 4.7 cm LVPWs: 1.3 cm LAESV Index (A-L): 22.13 ml/m Ao Diam: 3.5 cm (2.0 - 3.7) AV Cusp: 1.3 cm (1.5 - 2.6) LA Diam: 2.9 cm (2.7 - 3.8) MV EXCURSION: 15.857 mm (> 18.000) MV EF SLOPE: 109 mm/s (70 - 150) EPSS: 1.0 cm MV E Holden: 0.68 m/s MV DecT: 269 ms MV A Holden: 0.81 m/s MV E/A Ratio: 0.84 AV maxP.15 mmHg AV meanP.96 mmHg RAP: 5.00 mmHg RVSP: 26.36 mmHg FINDINGS -------- Sinus rhythm. This was a technically adequate study. Overall left ventricular systolic function is low-normal with, an EF between 50 - 55 %. The right ventricle is mildly enlarged. Normal LA size by volume 22+/-6 ml/m2. The right atrium is normal in size. Aortic valve is trileaflet and is mildly thickened. There is no evidence of aortic regurgitation. Mild aortic stenosis with peak/mean pressure gradient of 14.15mmHg / 7.96mmHg , the aortic valve area by continuity equation is 1.6cm. The mitral valve leaflets are mildly thickened. There is trace to mild mitral regurgitation. Trace tricuspid regurgitation present. There is no evidence of pulmonary hypertension. The right ventricular systolic pressure, as measured by Doppler, is 26.36mmHg. The pulmonic valve was not well visualized. The aortic root size is normal. IVC Not well visulized. The pericardium is normal. There is no pericardial effusion. CONCLUSIONS -------- 1. Sinus rhythm. 2. Trace tricuspid regurgitation present. 3. The pulmonic valve was not well visualized. 4. The aortic root size is normal. 5. IVC Not well visulized. 6. There is no pericardial effusion. 7. This was a technically adequate study. 8. Overall left ventricular systolic function is low-normal with, an EF between 50 - 55 %. 9. The right ventricle is mildly enlarged. 10. Normal LA size by volume 22+/-6 ml/m2. 11. Aortic valve is trileaflet and is mildly thickened. 12. Mild aortic stenosis with peak/mean pressure gradient of 14.15mmHg / 7.96mmHg , the aortic valve area by continuity equation is 1.6cm. 13. The mitral valve leaflets are mildly thickened. 14. There is trace to mild mitral regurgitation. [employer] ARCHITECT: Alvin Curran RDCS
[2017-01-11 12:38] VITALS: RESP 16
--- NOTE | 2017-01-11 15:54 | P.DS ---
Providers Date of admission: 01/10/17 15:05 Attending physician: Spencer Frye Consults: 01/09/17 10:40 Consult Physician Urgent Consulting Provider: Jason Montez Consult Reason/Comments: Chest pain Do you want consulting provider notified?: Yes, Notify in am Primary care physician: Stated None Hospital Course: 71-year-old man came in with chest pain for has a stress test which is positive for inducible ischemia. Patient underwent cardiac catheterization which did not show any significant stent table atherosclerotic vascular disease although there there is atherosclerotic vascular disease. PHYSICAL EXAMINATION: GENERAL: The patient is alert and oriented x3, not in any acute distress. Well developed, well nourished. HEENT: Pupils are round and equally reacting to light. EOMI. No scleral icterus. No conjunctival pallor. Normocephalic, atraumatic. No pharyngeal erythema. No thyromegaly. CARDIOVASCULAR: S1 and S2 present. No murmurs, rubs, or gallops. PULMONARY: Chest is clear to auscultation, no wheezing or crackles. ABDOMEN: Soft, nontender, nondistended, normoactive bowel sounds. No palpable organomegaly. MUSCULOSKELETAL: No joint swelling or deformity. EXTREMITIES: No cyanosis, clubbing, or pedal edema. NEUROLOGICAL: Gross neurological examination did not reveal any focal deficits. SKIN: No rashes. #1 chest pain: Management as mentioned above #2 hypertension: Well-controlled blood pressures and continue with lisinopril and amlodipine. #3 hypothyroidism continue with levothyroxine #4 benign prostatic hypertrophy and prostate cancer in the past status post radiation therapy recently late last year #5 hyperlipidemia Patient Condition at Discharge: Stable Plan - Discharge Summary New Discharge Prescriptions: New Atorvastatin [Lipitor] 40 mg PO HS #30 tab Metoprolol Tartrate [Lopressor] 12.5 mg PO BID #60 tab No Action Aspirin EC [Ecotrin Low Dose] 81 mg PO DAILY Garlic 1 tab PO DAILY Cholecalciferol [Vitamin D3] 6,000 unit PO DAILY amLODIPine [Norvasc] 10 mg PO DAILY Terazosin HCl 2 mg PO HS Multivit-Min/FA/Lycopen/Lutein [Centrum Silver Men Tablet] 1 tab PO DAILY Lisinopril 40 mg PO DAILY Levothyroxine Sodium [Synthroid] 50 mcg PO DAILY Fish Oil/Dha/Epa [Fish Oil 1,200 mg Fish Oil] 1 cap PO DAILY Curcumin 2 cap PO DAILY Discharge Medication List Aspirin EC [Ecotrin Low Dose] 81 mg PO DAILY 01/09/17 [History] Cholecalciferol [Vitamin D3] 6,000 unit PO DAILY 01/09/17 [History] Curcumin 2 cap PO DAILY 01/09/17 [History] Fish Oil/Dha/Epa [Fish Oil 1,200 mg Fish Oil] 1 cap PO DAILY 01/09/17 [History] Garlic 1 tab PO DAILY 01/09/17 [History] Levothyroxine Sodium [Synthroid] 50 mcg PO DAILY 01/09/17 [History] Lisinopril 40 mg PO DAILY 01/09/17 [History] Multivit-Min/FA/Lycopen/Lutein [Centrum Silver Men Tablet] 1 tab PO DAILY [History] Terazosin HCl 2 mg PO HS 01/09/17 [History] amLODIPine [Norvasc] 10 mg PO DAILY 01/09/17 [History] Atorvastatin [Lipitor] 40 mg PO HS #30 tab 01/11/17 [Rx] Metoprolol Tartrate [Lopressor] 12.5 mg PO BID #60 tab 01/11/17 [Rx] Follow up Appointment(s)/Referral(s): Maggie Flores MD [STAFF PHYSICIAN] - 01/16/17 4:15 pm None,Stated [Primary Care Provider] - 1-2 days Discharge Disposition: HOME SELF-CARE
[2017-01-11 16:13] VITALS: BP 116/69; PULSE 78; TEMP 98.1
--- NOTE | 2017-01-12 08:58 | PN ---
This gentleman had an abnormal stress test with lateral wall ischemia. He has hypertension and hyperlipidemia. I talked to the patient and at length, explained to them the need for cardiac cath. Rationale, risks, benefits and options were explained. Both patient and understand all details and wish to proceed with the procedure will be performed later today. PHYSICAL EXAM: VITAL SIGNS: Stable. HEART: S1/S2 heard normally. Short systolic murmur at the base is audible. Second heart sound is preserved. LUNGS: Clear. ABDOMEN AND LOWER EXTREMITIES: Unchanged. He will have a cardiac cath from the right radial approach today. TOLU
--- NOTE | 2017-01-12 10:28 | CC ---
DATE OF PROCEDURE: 01/11/2017 PROCEDURE: Left heart catheterization and coronary angiography. PERFORMED BY: Dr. Linda Flores. CLINICAL INFORMATION: Mr. Colt Gonzalez is a 71-year-old gentleman with history of hypertension, hyperlipidemia. He came into the hospital with nondescript chest tightness and had a stress test which revealed a lateral wall reversible defect with preserved ejection fraction. The echocardiogram revealed preserved normal systolic function. He was advised coronary angiography. Risks, benefits, options and rationale were explained in great detail to the patient and his . The patient and his understood the rationale, risks, benefits and options, and wished to proceed with the procedure. PROCEDURE NOTE: Under local anesthesia and strict aseptic precautions, a 6 Tamazight introducer was placed in the right radial artery. Using an Ultimate I catheter, I performed selective coronary angiography of the left system. For the right system, I used a JR4 5 Tamazight catheter. With this, I had selective coronary angiography. The same catheter was used to check LV pressures, but LV gram was not performed. The sheath was taken out and TR band applied as per protocol. Good hemostasis was achieved. Saturation in the fingers of the right hand was 92%. CARDIAC CATHETERIZATION FINDINGS The left ventricular end-diastolic pressure was about 13 to 14 mmHg without any gradient across the aortic valve. CORONARY ANGIOGRAPHY FINDINGS RIGHT CORONARY ARTERY: Technically a dominant vessel. Has multiple areas of irregularities, mild calcification. The proximal one third has a 40% narrowing, then the caliber improves distally, bifurcates in to multiple branches, but mostly the PDA and PLV are free of significant disease. RCA therefore has about a 40% proximal one third lesion, after which the caliber improves. There is mild diffuse disease seen throughout, but no critical lesions are detected, and this is a dominant vessel. LEFT MAIN CORONARY ARTERY: There is a mild 10% to 15% narrowing distally. It is a large-caliber vessel. Bifurcates into LAD and circumflex. LEFT ANTERIOR DESCENDING CORONARY ARTERY: Diffusely diseased vessel; has about a 50% proximal lesion without any critical narrowing, but the disease is diffuse and has mild calcification. The caliber of the vessel improves in the mid portion and it runs all the way to the apex, supplying a fair amount of myocardium. It gives off smaller diagonal and septal branches, which do not have any significant disease. The proximal LAD therefore has about a 50% lesion , best seen in the caudal projection, and this is not critical but moderate lesion. In the mid portion there is another 40% lesion as well. LEFT POSTERIOR CIRCUMFLEX CORONARY ARTERY: Technically a non-dominant vessel; has a 35% to 40% proximal lesion. Distally trifurcates into 3 branches. Supplies a fair amount of myocardium. Has minor irregularities. No other significant disease is noted. LEFT VENTRICULOGRAM: This was not performed. FINAL IMPRESSION: This patient has a right-dominant system, 50% proximal LAD lesion, 40% RCA and 30% to 40% circumflex lesion. No critical lesions. LAD is a long lesion. Filling pressures are acceptable. LV gram was not performed and there is no gradient across the aortic valve. RECOMMENDATIONS: Findings were discussed with the patient and his . I am recommending aggressive medical therapy with LDL of less than 70, beta blockers and blood pressure control. Patient will be discharged later on today and I will see him in the office next week. Discharge instructions regarding activity and diet and medications were given. Patient received moderate conscious sedation for a total duration of 30 minutes and was monitored closely. Oxygen saturation was good. He received Versed and Benadryl. Thank you very much for the consult. TOLU
[2017-01-12] MEDS ORDERED: ATORVASTATIN 40 MG TAB PO SCH (21:00)
== END 2017-01-11 18:30 | disposition home or self-care (01) | DRG 287 ==
LOC: EC 09:23 → 3OBS 10:39 → OBSVTOIN 01-10 15:05
PROVIDERS: ADMIT Hospitalist; ATTEND Hospitalist
PROC: 4A023N7 Measurement of Cardiac Sampling and Pressure, Left Heart, Percutaneous Approach (ICD-10-PCS; principal; 2017-01-10)
PROC: B2111ZZ Fluoroscopy of Multiple Coronary Arteries using Low Osmolar Contrast (ICD-10-PCS; 2017-01-10)
DX: R07.9 Chest pain, unspecified (principal); I10 Essential (primary) hypertension; I25.10 Atherosclerotic heart disease of native coronary artery without angina pectoris; E03.9 Hypothyroidism, unspecified; E78.00 Pure hypercholesterolemia, unspecified; E78.5 Hyperlipidemia, unspecified; I49.3 Ventricular premature depolarization; N40.0 Benign prostatic hyperplasia without lower urinary tract symptoms; R01.1 Cardiac murmur, unspecified; Z79.899 Other long term (current) drug therapy; Z79.82 Long term (current) use of aspirin; Z85.46 Personal history of malignant neoplasm of prostate; Z87.891 Personal history of nicotine dependence; Z82.49 Family history of ischemic heart disease and other diseases of the circulatory system
CPT/HCPCS: 36415; 71020; 78452; 80053; 82550; 82553; 83735; 84443; 84484; 85025; 85379; 85610; 85730; 93005; 93017; 93306; 94760